=== PATIENT | male | born 1960 | race African-American/Black ===

== ENCOUNTER 2017-02-12 07:10 | Observation (INO) | payer OTHER ==
[2017-02-12] VITALS (7 sets, daily range): BP systolic 119–150; BP diastolic 77–99
[~2017-02-12] VITALS: Ht 190.5 cm; Wt 121.1 kg
--- NOTE | ~2017-02-12 | EKG ---
[place] [address] [facility] [employer] [place] [address] ELECTROCARDIOGRAM REPORT Name: DARVINBACILIO Room #: REG [facility] [id number] Admission: 02/12/17 Attend Phys: Discharge: Date of : 64 Report #: [id number] THIS REPORT FOR: //name// [facility] ED Test Date: 2017-02-12 Test Time: 09:01:42 Pat Name: BACILIO BOSTON Department: Room: Gender: Manager Dish: MOOK : 1960 Requested By: Aamir Buck Order Number: [id number] MD: Mitchell Gleason Measurements Intervals [place] Rate: 56 P: 16 FL: 192 QRS: 64 QRSD: 99 T: 52 QT: 467 QTc: 451 Interpretive Statements Sinus rhythm Anteroseptal infarct, old Compared to ECG 12/25/2015 21:42:50 No significant changes Electronically Signed On 02-12-2017 9:11:20 CDT by Mitchell Gleason [email or web address] <ELECTRONICALLY SIGNED> By: Mitchell Gleason MD, [facility] 02/12/17910 0 0901 Mitchell Gleason MD, FACC /EPI
--- NOTE | ~2017-02-12 | 2DMMODE ---
[facility] [address] [place] [address] 2 D/M-MODE ECHOCARDIOGRAM Name: BACILIO BOSTON Room #: 427-P [facility] IN ..#: [id number] Admission: 02/12/17 Attend Phys: Carrington Rodgers, Discharge: Date of : 64 Date of Service: 02/12/17 1430 Report #: [id number] THIS REPORT FOR: //name// APPROVED REPORT Study performed: 02/12/2017 13:13:58 EXAM: Comprehensive 2D, Doppler, and color-flow Echocardiogram Patient Location: Bedside Room #: 427 Status: routine BSA: 2.48 HR: 60 bpm BP: 150/94 mmHg Other Information Study Quality: Good Indications Syncope 2D Dimensions RVDd: 41.18 mm LVEF(%): 65.95 (>50%) IVSd: 11.69 (7-11mm) LVOT Diam: 23.60 (18-24mm) LVDd: 46.76 mm PWd: 12.06 (7-11mm) Ascending Ao: 34.45 (22-36mm) LVDs: 29.80 (25-40mm) Aortic Root: 27.44 mm IVC: 17.00 mm Payne's LVEF: 65.95 % Volumes Left Atrial Volume (Systole) Single Plane 4CH: 70.04 mL Single Plane 2CH: 43.19 mL LA ESV Index: 25.00 mL/m2 Mitral Valve E/A Ratio: 1.1 MV Decel. Time: 339.80 ms MV E Max Hernando.: 0.72 m/s MV A Hernando.: 0.68 m/s MV PHT: 98.54 ms IVRT: 96.89 ms Pulmonary Valve PV Peak Hernando.: 1.69 m/s PV Peak Gr.: 11.41 mmHg [facility] [place] [address] 2 D/M-MODE ECHOCARDIOGRAM Name: BACILIO BOSTON Room #: 427-P ADM IN .R.#: [id number] Admission: 02/12/17 Attend Phys: Carrington Rodgers, Discharge: Date of : 64 Date of Service: 02/12/17 1430 Report #: [id number] Pulmonary Vein P Vein S: 0.61 m/s P Vein A: 0.26 m/s P Vein D: 0.39 m/s P Vein A Dur.: 120.0 msec P Vein S/D Ratio: 1.56 Left Ventricle The left ventricle is normal size. There is normal LV segmental wall motion. Mild concentric left ventricular hypertrophy. The left ventricular systolic function is normal. The left ventricular ejection fraction is within the normal range. LVEF is 60-65%. The left ventricular diastolic function is normal. Right Ventricle The right ventricle is normal size. The right ventricular systolic function is normal. Atria The left atrium size is normal. The right atrium size is normal. Aortic Valve The aortic valve is normal in structure. No aortic regurgitation is present. There is no aortic valvular stenosis. Mitral Valve The mitral valve is normal in structure. There is no mitral valve regurgitation noted. No evidence of mitral valve stenosis. Tricuspid Valve The tricuspid valve is normal in structure. There is no tricuspid valve stenosis. There is no tricuspid valve regurgitation noted. Pulmonic Valve The pulmonary valve is normal in structure. There was an increased gradient with a peak gradient of 11 mmHg and a mean gradient of 7 mmHg. Trace pulmonic regurgitation. Great Vessels The aortic root is normal in size. IVC is normal in size and collapses >50% with inspiration. Pericardium There is no pericardial effusion. [facility] [address] [place] [address] 2 D/M-MODE ECHOCARDIOGRAM Name: BACILIO BOSTON SR Room #: 427-P [facility] IN M.R.#: [id number] Admission: 02/12/17 Attend Phys: Carrington Rodgers, Discharge: Date of : 64 Date of Service: 02/12/17 1430 Report #: [id number] <Conclusion> The left ventricle is normal size. LVEF is 60-65%. The aortic valve is normal in structure. The mitral valve is normal in structure. The tricuspid valve is normal in structure. The pulmonary valve is normal in structure. Trace pulmonic regurgitation. There is no pericardial effusion. <ELECTRONICALLY SIGNED> By: Rodney Capone MD 02/12/17 [phone] Rodney Capone MD /INF
[~2017-02-12 07:10] MED LIST: ASPIRIN325 PO; B12INJ PO; FLEXERIL PO; IBUPROFEN 600600 M1 PO; MEN 50 PLUS MU1 EACH PO; MOBIC15 MG PO; NOHOMEMEDICATIONS; NORCO 5-325 TA1 EACH PO; PERCOCET 5-3251 EACH PO; PERCOCET PO; PREDNISONE 20 M20 MG PO; SENNA8.6 MG PO; XARELTO15 MG
[2017-02-12] MEDS ORDERED: PRADAXA150 MG PO (07:17)
[2017-02-12 08:20] LABS: HEMATOCRIT 44.8 % (42.0-52.0); HEMOGLOBIN 15.2 gm/dL (14.0-18.0); MCH 31.2 pg (26.0-34.0); MCHC 33.9 g/dL (28.0-37.0); MCV 92.1 fL (80.0-100.0); RBC 4.86 mil/uL (4.50-6.00); RDW 13.5 % (10.5-14.5); WBC 5.8 thou/uL (4.0-11.0)
[2017-02-12 08:29] LABS: ANION GAP 10 mmol/L (7-16); BUN 12 mg/dL (7-18); CHLORIDE 100 mmol/L (98-107); CO2 26 mmol/L (21-32); CREATININE 1.3 mg/dL (0.7-1.3); GLUCOSE 120 mg/dL (74-106); POTASSIUM 3.6 mmol/L (3.5-5.1); SODIUM 136 mmol/L (136-145)
[2017-02-12 08:37] LABS: ALBUMIN 4.1 g/dL (3.4-5.0); ALKALINE PHOSPHATASE 99 U/L (46-116); MAGNESIUM 2.1 mg/dL (1.8-2.4); SGOT 30 U/L (15-37); SGPT 31 U/L (30-65); TOTAL BILIRUBIN 0.5 mg/dL (<0.1-1.0); TOTAL PROTEIN 8.4 g/dL (6.4-8.2); TROPONIN-I < 0.04 ng/mL (<0.04-0.07)
[2017-02-12 10:58] LABS: CHOLESTEROL 138 mg/dL (<200); HDL CHOLESTEROL 45 mg/dL (>40); LDL CHOLESTEROL 82 mg/dL (<100); TC:HDL 3.1 Ratio (Not establshd); TRIGLYCERIDE 59 mg/dL (<150); VLDL 12 mg/dL (<40)
[2017-02-13 04:00] VITALS: BP 144/85
[2017-02-13 06:00] LABS: ABSOLUTE NEUTROPHILS 3.1 thou/uL (1.4-8.2); BASOPHILS 0.9 % (0.0-2.0); EOSINOPHILS 4.8 % (0.0-3.0); HEMATOCRIT 41.2 % (42.0-52.0); HEMOGLOBIN 13.7 gm/dL (14.0-18.0); LYMPHOCYTES 28.9 % (24.0-44.0); MCH 30.8 pg (26.0-34.0); MCHC 33.2 g/dL (28.0-37.0); MCV 92.7 fL (80.0-100.0); MONOCYTES 11.9 % (1.0-8.0); PLATELET COUNT 250 thou/uL (150-400); POLYS 53.5 % (36.0-66.0); RBC 4.45 mil/uL (4.50-6.00); RDW 13.2 % (10.5-14.5); WBC 5.7 thou/uL (4.0-11.0)
[2017-02-13 06:07] LABS: MANUAL DIFF NO
[2017-02-13 06:17] LABS: CALCIUM 8.6 mg/dL (8.5-10.1); CREATININE 1.4 mg/dL (0.7-1.3)
[2017-02-13 08:00] VITALS: BP 137/88
[2017-02-13 15:11] VITALS: BP 134/84
[2017-02-13 20:18] VITALS: BP 127/70
[2017-02-14 04:14] VITALS: BP 129/84
[2017-02-14 07:32] VITALS: BP 149/91
[2017-02-14 10:29] VITALS: BP 149/91
== END 2017-02-14 11:12 | disposition home or self-care (01) ==
LOC: ER 07:10 → 4E 09:24 → EROBS 09:24 → 4E 09:24 → ENTRNSPT 02-14 10:59 → EDTRNSPTSTS 02-14 11:05 → 4E 02-14 11:12
PROVIDERS: Emergency Medicine; Family Medicine
DX: R55 Syncope and collapse (principal); R00.1 Bradycardia, unspecified; F10.10 Alcohol abuse, uncomplicated; F17.210 Nicotine dependence, cigarettes, uncomplicated; Z86.718 Personal history of other venous thrombosis and embolism
CPT/HCPCS: 10183

== ENCOUNTER 2018-02-20 06:07 | Inpatient (IN) | payer OTHER ==
[~2018-02-20] VITALS: Ht 188 cm; Wt 121.3 kg
--- NOTE | ~2018-02-20 | HC ---
[facility] [place] [address] CONSULTATION Name: BACILIO BOSTON SR Room #: 206-P ADM IN M.R.#: [id number] Admission: 02/20/18 Attend Phys: Eros Carias MD Discharge: Date of : 64 Report #: [id number] THIS REPORT FOR: //name// CC: Eros Alas MD REQUESTING PHYSICIAN: Eros Carias M.D. REASON FOR CONSULTATION: Recurrent pulmonary embolus. HISTORY OF PRESENT ILLNESS: The patient is a very pleasant 57-year-old gentleman from the [place] area, who was admitted after a short time because of chest pain, reminiscent of his blood clot from several years ago. His history is significant for sort of having some type of spinal surgery at [facility] on the [place] in early 2015 and then, I believe, in July, about 2 weeks afterwards, he was found to have a right-sided leg clot which [facility] think [facility]. He was on blood thinner and then about 2 weeks after he finished, he had severe chest pain and was admitted to [facility] after a finding of bilateral significant pulmonary emboli. He was on blood thinner, I believe, Xarelto for about a year or year and a half. His insurance changed and they wished to have him take a preferred agent. Instead, he ended up stopping the medication and did fine for about 4-6 months, but recently had pain similar to that and that is what brought him to the hospital. At this time, he has a new clot, but it is of much smaller amount. Back in 2015, in November, when he had the blood culture, we did ultrasounds with no clots. We will order ultrasound to this date. The patient has no family history of anyone else with clots or early strokes or early heart attacks. The patient before this denied fevers, chills, nausea or vomiting. History is very significant for being a smoker throughout all this. He has been told at least by me twice today that he should avoid smoking as this will increase the risk of future clots. He also has not had any other trauma, recent infections or other provoking incidents that I can elicit. FAMILY HISTORY: Father , did not know much about him. He remembers him to be in a wheelchair; I think, it might have been from some type of trauma. His mother is alive at age 94. He has 1 brother and 2 sisters, who are alive and well. He has 5 sons that are alive and well. He has 4 grandchildren. SOCIAL HISTORY: He is a smoker and maybe 2-3 beers per night. 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 He works long hours and has been there for about 2 years. His is a pharmacist at for some 20 years, if I understand correctly, who has done a lot of reading about anticoagulants. LABORATORY DATA: Lab tests here have been mostly unremarkable and included BUN [facility] [address] [place] [address] CONSULTATION Name: BACILIO BOSTON SR Room #: 206-P ADM IN M.R.#: [id number] Admission: 02/20/18 Attend Phys: Eros Carias MD Discharge: Date of : 64 Report #: [id number] of 12, creatinine of 1.2 and glucose of 161 and today 229. Liver functions normal. Baseline, aPTT was 27.9. Baseline INR not measured this time, but in the past, it had been normal. White count 12.8, hemoglobin 15.1, MCV 92.9 and platelets 272,000. Differential fairly normal. RADIOLOGIC STUDIES: Notable for the CTA chest showing the left lower lobe embolus, without any large or central emboli. No significant adenopathy. PHYSICAL EXAMINATION: VITAL SIGNS: The patient is 6 feet 2 inches or 187.96 cm, weight 245 pounds or 111.1 kilograms. Blood pressure is 120/76, O2 sat 95%, respirations 18, pulse 66 and temperature afebrile at 97.9. MOOD: He is alert and pleasant. LUNGS: Clear. HEART: Regular rate. CHEST: The patient states the chest wall pain that he had is much improved, almost gone. No leg swelling. ABDOMEN: No pain, no mass. EXTREMITIES: Without clubbing or cyanosis. No edema. ASSESSMENT AND PLAN: 1. Third episode of clot, especially given the fact that the second one occurred after 6 months of anticoagulation and this one occurred in spite of having been on anticoagulant. The patient should strongly consider life-long anticoagulation. It is possible that if he stops smoking, his risk might be lower, but I had still be worried about that. I would suggest life-long anticoagulation at this time. I do not really have a strong preference for the agents; if his insurance prefers one to Jonh, I will try it. If not, he did tolerate Xarelto very well. He does not appear to have any unusual bleeding risks and he is very aware of the potential difficulties with any of the agents, as is his . 2. Tobaccoism. I strongly encouraged cessation. 3. Elevated glucose. Defer to others. Note that hemoglobin A1c is pending. We will be available if other questions arise. <ELECTRONICALLY SIGNED> By: Osbaldo Goodwin MD 02/22/18 0726 [id number] [id number] Osbaldo Goodwin MD /nt
--- NOTE | ~2018-02-20 | HC ---
[facility] [place] [address] CONSULTATION Name: BACILIO BOSTON SR Room #: 206-P ADM IN M.R.#: [id number] Admission: 02/20/18 Attend Phys: Eros Carias MD Discharge: Date of : 64 Report #: [id number] THIS REPORT FOR: //name// CC: Eros Alas DATE OF SERVICE: 02/20/2018 PULMONARY CONSULTATION REFERRAL PHYSICIAN: Dr. Carias. REASON FOR REFERRAL: Recurrent pulmonary embolus. HISTORY OF PRESENT ILLNESS: The patient is a 57-year-old male who presents to the Emergency Room with left lower chest wall pain and dyspnea. CT chest angiogram revealed pulmonary embolus. A pulmonary consultation was requested. The patient is known to this physician. He was previously seen in December 2015 for pulmonary embolus. The patient was initially diagnosed in July 2015 following cervical spine surgery. In December 2015, he was found to have pulmonary embolus. The patient was sedentary during that time. The patient had been on chronic anticoagulation. He was given Xarelto. About 6 months ago, he discontinued Xarelto. He mentioned that his insurance was inquiring about whether he could be placed on an alternative cheaper form of oral anticoagulant. He was asked to follow up in the office. The patient did not and subsequently discontinued Xarelto on his own. The patient was seen in the office more than a year ago. With his history of recurrent venous thromboembolic disease, it was recommended to him that he remain on anticoagulation. He was doing fairly well when he discontinued anticoagulation 6 months ago until last evening, the patient developed sharp left lower chest wall pain. Pain was exacerbated with deep inspiration and with movements. This was similar pains when he was diagnosed with pulmonary embolus about 2 years ago. LABORATORY DATA: CT chest angiogram was reviewed. This shows moderate right lower lobe pulmonary embolus. Mild volume loss and infiltrates seen in the left lower lobe with small pleural effusion suggestive for possible pulmonary infarction. Procalcitonin level was normal. D-dimer was slightly elevated. Sodium 138, potassium 4.1, chloride 104, CO2 of 26, BUN is 13, creatinine is 1.5. Liver enzymes are normal. WBC 6300, hemoglobin is 14.7, platelets are normal. [place] [id number] CONSULTATION Name: BACILIO BOSTON Room #: 206-P ADM IN ..#: [id number] Admission: 02/20/18 Attend Phys: Eros Carias MD Discharge: Date of : 64 Report #: [id number] IMPRESSION: 1. Recurrent venous thromboembolic disease in this 57-year-old male. His initial diagnosis was in July 2015 following a spine surgery. He was found to have left deep venous thrombosis. In December 2015, he was found to have bilateral pulmonary embolus. His risk factor was his sedentary state. The patient stopped oral anticoagulant voluntarily 6 months ago. Please see comments below. 2. Severe left-sided chest pain, likely pulmonary infarction. Small pleural effusion is also noted. 3. Tobacco abuse. RECOMMENDATION AND DISCUSSION: This will be the patient's third venous thromboembolic event. He appears to have recurrent pulmonary embolus. Chest pain suggests probable pulmonary infarction. I would recommend heparinization. Oral anticoagulant should be resumed. I favor Pradaxa given the availability of reversal agent. Eliquis does have a reversal agent, but the availability is sparse and also out of town. Xarelto is similar in that reversal agent is not readily available as of yet. Coumadin has been discussed as an option if his insurance does not cover the direct oral anticoagulant. As previously discussed with the patient and again, I strongly recommend lifelong anticoagulation given this is his third venous thromboembolic event. I have also discussed that there is an inherent bleeding complications on long-term anticoagulation. There is about 3% chance of major bleed, less than 1% chance of fatal bleed. The patient voices understanding. We will prefer to observe the patient over the next 36-48 hours to assure that he does not bleed, particularly the concerns for possible pulmonary infarction. If the patient is stable after about 2 days on full dose anticoagulation, I think it is reasonable for discharge planning. Thank you for this consultation. <ELECTRONICALLY SIGNED> By: Tony Alas MD 02/21/18 1516 1533 [id number] Tony Alas MD /nt
--- NOTE | ~2018-02-20 | EKG ---
[address] [address] ELECTROCARDIOGRAM REPORT Name: BACILIO BOSTON Room #: 206-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
[~2018-02-20 06:07] MED LIST changes: +PRADAXA150 MG PO
[2018-02-20 06:08] VITALS: BP 147/94
[2018-02-20 06:29] LABS: HEMATOCRIT 43.1 % (42.0-52.0); HEMOGLOBIN 14.7 gm/dL (14.0-18.0); MCH 31.4 pg (26.0-34.0); MCHC 34.2 g/dL (28.0-37.0); MCV 91.7 fL (80.0-100.0); RBC 4.69 mil/uL (4.50-6.00); RDW 12.8 % (10.5-14.5); WBC 6.3 thou/uL (4.0-11.0)
[2018-02-20 06:33] LABS: ANION GAP 8 mmol/L (7-16); BUN 13 mg/dL (7-18); CALCIUM 8.7 mg/dL (8.5-10.1); CHLORIDE 104 mmol/L (98-107); CO2 26 mmol/L (21-32); CREATININE 1.5 mg/dL (0.7-1.3); GLUCOSE 161 mg/dL (74-106); POTASSIUM 4.1 mmol/L (3.5-5.1); SODIUM 138 mmol/L (136-145)
[2018-02-20 06:42] LABS: ALBUMIN 3.4 g/dL (3.4-5.0); SGOT 23 U/L (15-37); SGPT 31 U/L (30-65); TOTAL BILIRUBIN 0.4 mg/dL (<0.1-1.0); TOTAL PROTEIN 7.8 g/dL (6.4-8.2); TROPONIN-I <0.06 ng/mL (<0.06)
[2018-02-20 08:38] VITALS: BP 135/82
[2018-02-20 09:47] VITALS: BP 131/95
[2018-02-20 11:15] VITALS: BP 156/104
[2018-02-20 16:11] VITALS: BP 141/93
[2018-02-20 19:57] VITALS: BP 143/92
[2018-02-21 04:39] VITALS: BP 138/92
[2018-02-21 05:50] LABS: HEMATOCRIT 43.9 % (42.0-52.0); HEMOGLOBIN 15.1 gm/dL (14.0-18.0); MCH 31.9 pg (26.0-34.0); MCHC 34.4 g/dL (28.0-37.0); MCV 92.9 fL (80.0-100.0); PLATELET COUNT 272 thou/uL (150-400); RBC 4.73 mil/uL (4.50-6.00); RDW 12.8 % (10.5-14.5); WBC 12.8 thou/uL (4.0-11.0)
[2018-02-21 06:02] LABS: CALCIUM 9.7 mg/dL (8.5-10.1); CREATININE 1.2 mg/dL (0.7-1.3); MAGNESIUM 1.9 mg/dL (1.8-2.4)
[2018-02-21 08:08] LABS: ABSOLUTE NEUTROPHILS 10.9 thou/uL (1.4-8.2); PLATELET ESTIMATE NORMAL
[2018-02-21 08:28] VITALS: BP 120/76
[2018-02-21 12:12] VITALS: BP 143/86
[2018-02-21 16:20] VITALS: BP 129/81
[2018-02-21 19:41] VITALS: BP 129/84
[2018-02-21 21:06] LABS: GLYCOHEMOGLOBIN (HGB A1C) 6.5 % (4.8-5.6)
[2018-02-22 04:24] VITALS: BP 121/75
[2018-02-22 05:33] LABS: HEMATOCRIT 42.7 % (42.0-52.0); HEMOGLOBIN 14.1 gm/dL (14.0-18.0); MCH 31.2 pg (26.0-34.0); MCV 94.5 fL (80.0-100.0); RBC 4.51 mil/uL (4.50-6.00); RDW 12.8 % (10.5-14.5); WBC 14.6 thou/uL (4.0-11.0)
[2018-02-22 07:46] VITALS: BP 144/89
[2018-02-22] MEDS ORDERED: PRADAXA150 MG PO (12:13)
[2018-02-22 12:21] VITALS: BP 144/89
== END 2018-02-22 12:43 | disposition home or self-care (01) | DRG 175 ==
LOC: ER 06:07 → EROBS 08:26 → 2N 09:59
PROVIDERS: Emergency Medicine; Internal Medicine Hematology & Oncology; Internal Medicine Pulmonary Disease; Nurse Practitioner
DX: I26.99 Other pulmonary embolism without acute cor pulmonale (principal); J18.9 Pneumonia, unspecified organism; N17.9 Acute kidney failure, unspecified; R73.9 Hyperglycemia, unspecified; F17.210 Nicotine dependence, cigarettes, uncomplicated; Z86.718 Personal history of other venous thrombosis and embolism; Z79.01 Long term (current) use of anticoagulants; Z79.899 Other long term (current) drug therapy; Z91.041 Radiographic dye allergy status; Z91.011 Allergy to milk products; Z91.018 Allergy to other foods
CPT/HCPCS: 10081

== ENCOUNTER 2020-09-05 15:05 | Emergency (ER) | payer BC ==
[~2020-09-05] VITALS: Ht 190.5 cm; Wt 108.9 kg
[2020-09-05 15:38] LABS: ABSOLUTE NEUTROPHILS 1.3 thou/uL (1.4-8.2); BASOPHILS 1.6 % (0.0-2.0); EOSINOPHILS 7.2 % (0.0-3.0); HEMATOCRIT 40.3 % (42.0-52.0); HEMOGLOBIN 13.9 gm/dL (14.0-18.0); LYMPHOCYTES 40.2 % (24.0-44.0); MCH 32.5 pg (26.0-34.0); MCHC 34.5 g/dL (28.0-37.0); MCV 94.2 fL (80.0-100.0); MONOCYTES 14.8 % (1.0-8.0); PLATELET COUNT 230 thou/uL (150-400); POLYS 36.2 % (36.0-66.0); RBC 4.27 mil/uL (4.50-6.00); RDW 13.2 % (10.5-14.5); WBC 3.5 thou/uL (4.0-11.0)
[2020-09-05 15:44] LABS: ANION GAP 10 mmol/L (7-16); BUN 11 mg/dL (7-18); CALCIUM 8.4 mg/dL (8.5-10.1); CHLORIDE 106 mmol/L (98-107); CO2 27 mmol/L (21-32); GLUCOSE 100 mg/dL (74-106); POTASSIUM 3.8 mmol/L (3.5-5.1); SODIUM 143 mmol/L (136-145)
[2020-09-05 15:54] LABS: ALBUMIN 3.7 g/dL (3.4-5.0); SGOT 21 U/L (15-37); SGPT 29 U/L (16-63); TOTAL BILIRUBIN 0.5 mg/dL (0.2-1.0); TOTAL PROTEIN 7.3 g/dL (6.4-8.2); TROPONIN-I <0.06 ng/mL (<0.06)
--- NOTE | 2020-09-05 15:59 | EKG ---
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
[2020-09-05] MEDS ORDERED: FISH OIL 1,0001 EAC1 PO (16:41)
[2020-09-05] MEDS ORDERED: FISH OIL 1,001000 M3 PO (16:41)
[2020-09-05] MEDS ORDERED: B COMPLEX1 EACH PO (16:42)
[2020-09-05] MEDS ORDERED: MEN'S 50 PLUS1 EACH PO (16:42)
[2020-09-05] MEDS ORDERED: NORCO 10-325 T1 EACH PO (16:44)
[2020-09-05 17:13] VITALS: BP 156/94
== END 2020-09-05 17:13 | disposition home or self-care (01) ==
LOC: ER 15:05
PROVIDERS: Physician Assistant
DX: S29.011A Strain of muscle and tendon of front wall of thorax, initial encounter (principal); R07.81 Pleurodynia; F17.210 Nicotine dependence, cigarettes, uncomplicated; Z86.711 Personal history of pulmonary embolism; Z98.890 Other specified postprocedural states; Z86.718 Personal history of other venous thrombosis and embolism; Z79.899 Other long term (current) drug therapy; Z91.018 Allergy to other foods; Z91.011 Allergy to milk products; X58.XXXA Exposure to other specified factors, initial encounter; Y93.89 Activity, other specified; Y92.89 Other specified places as the place of occurrence of the external cause; Y99.8 Other external cause status

== ENCOUNTER 2021-04-14 22:38 | Emergency (ER) | payer OTHER ==
[~2021-04-14] VITALS: Ht 190.5 cm; Wt 108.9 kg
[~2021-04-14 22:38] MED LIST changes: +B COMPLEX1 EACH PO; +FISH OIL 1,0001 EAC1 PO; +FISH OIL 1,001000 M3 PO; +MEN'S 50 PLUS1 EACH PO; +NORCO 10-325 T1 EACH PO
[2021-04-14 23:33] LABS: ABSOLUTE NEUTROPHILS 1.8 thou/uL (1.4-8.2); BASOPHILS 1.1 % (0.0-2.0); EOSINOPHILS 7.3 % (0.0-3.0); HEMATOCRIT 44.1 % (42.0-52.0); HEMOGLOBIN 14.8 gm/dL (14.0-18.0); LYMPHOCYTES 40.6 % (24.0-44.0); MCH 32.1 pg (26.0-34.0); MCHC 33.6 g/dL (28.0-37.0); MCV 95.5 fL (80.0-100.0); MONOCYTES 12.4 % (1.0-8.0); PLATELET COUNT 254 thou/uL (150-400); POLYS 38.6 % (36.0-66.0); RBC 4.62 mil/uL (4.50-6.00); RDW 12.9 % (10.5-14.5); WBC 4.6 thou/uL (4.0-11.0)
[2021-04-14 23:39] LABS: CALCIUM 8.5 mg/dL (8.5-10.1); CREATININE 1.2 mg/dL (0.7-1.3)
[2021-04-15 01:06] VITALS: BP 130/69
== END 2021-04-15 01:07 | disposition home or self-care (01) ==
LOC: ER 22:38
PROVIDERS: Student in an Organized Health Care Education/Training Program
DX: M62.81 Muscle weakness (generalized) (principal); F17.210 Nicotine dependence, cigarettes, uncomplicated; Z98.890 Other specified postprocedural states; Z79.899 Other long term (current) drug therapy; Z79.891 Long term (current) use of opiate analgesic; Z91.011 Allergy to milk products; Z91.018 Allergy to other foods